=== PATIENT | male | born 1975 | race Two or more races ===

== ENCOUNTER 2019-09-20 13:47 | Inpatient (IN) | payer MEDICAID ==
[~2019-09-20] VITALS: Ht 167.6 cm; Wt 72.3 kg
--- NOTE | 2019-09-20 | NUR ---
NURSE NOTES: Started blood transfusion 1 pack. Pt has no blood transfusion reaction noted after 15 min starting blood transfusion. Vitals are stable. Will continue to monitor.
[~2019-09-20 13:47] MED LIST: Ketorolac 30mg Inj IV ONE
[2019-09-20 13:55] VITALS: BP 127/78
--- NOTE | 2019-09-20 13:55 | NUR ---
ED Nurse Note: Pt brought in by ambulance for ETOH. Pt is responsive and cooperative, rambles, aaox3. ERMD at bedside
--- NOTE | 2019-09-20 14:00 | NUR ---
ED Nurse Note: Pt issued all medications and fluids, tolerating well. Pt is sleeping.
[2019-09-20 14:27] LABS: HEMATOCRIT 23.4 % (42.0-52.0); MEAN CORPUSCULAR VOLUME 77 FL (80-99); PLATELET COUNT 172 K/UL (150-450); RED BLOOD COUNT 3.06 M/UL (4.70-6.10); RED CELL DISTRIBUTION WIDTH 19.4 % (11.6-14.8); WHITE BLOOD COUNT 8.9 K/UL (4.8-10.8)
[2019-09-20] MEDS ORDERED: Ketorolac 30mg Inj ONE (14:29)
[2019-09-20 14:32] LABS: HEMOGLOBIN 6.9 G/DL (14.2-18.0)
[2019-09-20 14:37] LABS: ANION GAP 21 mmol/L (5-15); BLOOD UREA NITROGEN 40 mg/dL (7-18); CALCIUM 9.3 MG/DL (8.5-10.1); CARBON DIOXIDE 19 MMOL/L (21-32); CHLORIDE 100 MMOL/L (98-107); CREATININE 1.4 MG/DL (0.55-1.30); POTASSIUM 4.5 MMOL/L (3.5-5.1); SODIUM 140 MMOL/L (136-145)
[2019-09-20 14:42] LABS: ALANINE AMINOTRANSFERASE 46 U/L (12-78); ALBUMIN 3.8 G/DL (3.4-5.0); ALBUMIN/GLOBULIN RATIO 0.8 (1.0-2.7); ALKALINE PHOSPHATASE 45 U/L (46-116); ASPARTATE AMINO TRANSFERASE 138 U/L (15-37); BILIRUBIN,TOTAL 0.8 MG/DL (0.2-1.0)
--- NOTE | 2019-09-20 15:10 | NUR ---
ED Nurse Note: Received patient from Tx 1 due to low hemoglobin. pt aao x 2 and ambulatory but weak. pt smells like alcohol and flushed face noted. pt calm and follows commands. no cardiac or pulmonary distress noted at this moment.
[2019-09-20 16:05] LABS: INR 1.1 (0.9-1.1)
[2019-09-20 16:11] LABS: % IRON SATURATION 3 % (15-50); IRON 13 ug/dL (50-175); TOTAL IRON BINDING CAPACITY 439 ug/dL (250-450)
--- NOTE | 2019-09-20 16:18 | Emergency Room Report ---
History of Present Illness General Chief Complaint: Alcohol Intoxication Present Illness HPI 44-year-old male with history of high blood pressure and hematuria brought in by paramedics due to alcohol intoxication. Patient is alert and oriented and reports that he did consume a lot of alcohol. Patient is a [place]ian speaker. Denies any chest pain, headache and dizziness, shortness of breath and palpitation at this time. Reports that he has been dealing with gross hematuria for many months now. Does not recall the name of the medication that he is taking for his high blood pressure and cholesterol. Denies abdominal pain , nausea vomiting at this time. Vitals are within normal limits. (Tong Lozano) Allergies: Coded Allergies: No Known Allergies (Unverified , 09/20/19) Patient History Past Medical History: see triage record Past Surgical History: unable to obtain Pertinent Family History: unable to obtain Social History: Reports: alcohol use Immunizations: UTD Reviewed Nursing Documentation: PMH: Agreed; PSxH: Agreed (Tong Lozano) Review of Systems All Other Systems: negative except mentioned in HPI (Tong Lozano) Physical Exam Vital Signs Date Time Temp Pulse Resp B/P (MAP) Pulse Ox O2 Delivery O2 Flow Rate FiO2 09/20/19 13:18 99.9 100 124/73 (90) 18 Room Air 09/20/19 13:55 22 Sp02 EP Interpretation: reviewed, normal General Appearance: alert, mild distress, other - alcohol intoxication Head: normocephalic, atraumatic Eyes: bilateral eye normal inspection, bilateral eye PERRL ENT: hearing grossly normal, normal pharynx, no angioedema, normal voice Neck: full range of motion, supple/symm/no masses Respiratory: chest non-tender, lungs clear, normal breath sounds, no rhonchi, no respiratory distress, no retraction, no wheezing, speaking full sentences Cardiovascular #1: regular rate, rhythm, no edema, no murmur, normal capillary refill Cardiovascular #2: 2+ radial (R), 2+ radial (L), 2+ dorsalis pedis (R), 2+ dorsalis pedis (L) Gastrointestinal: normal bowel sounds, non tender, soft, non-distended, no guarding, no rebound Rectal: deferred Genitourinary: no CVA tenderness Musculoskeletal: back normal, no calf tenderness Neurologic: alert, motor strength/tone normal, oriented, sensory intact, responsive, speech normal Psychiatric: memory normal, mood/affect normal, no suicidal/homicidal ideation Skin: no rash Lymphatic: no adenopathy (Tong Lozano) Medical Decision Making PA Attestation All diagnoses and treatment plans were reviewed and discussed with my supervising physician Dr. Blood (Tong Lozano) PA Attestation I participated in the care of this patient along with ANDREA Quintero Briefly, this is a 44-year-old [place]ian-speaking male who was brought in by EMS for alcohol intoxication. Labs found significant microcytic anemia and the patient was endorsing gross hematuria over the past few weeks. He is being transfused 1 unit PRBC in the emergency department and will be admitted for anemia and hematuria work-up. (Chava Means MD) Diagnostic Impression: Primary Impression: Microcytic anemia Additional Impressions: Hematuria Acute alcoholic intoxication ER Course 44-year-old male with history of high blood pressure and hematuria brought in by paramedics due to alcohol intoxication. Patient is alert and oriented and reports that he did consume a lot of alcohol. Patient is a Belarusian speaker. Denies any chest pain, headache and dizziness, shortness of breath and palpitation at this time. Reports that he has been dealing with gross hematuria for many months now. Does not recall the name of the medication that he is taking for his high blood pressure and cholesterol. Denies abdominal pain , nausea vomiting at this time. Vitals are within normal limits. Ddx considered but are not limited to: Alcohol intoxication with altered level of consciousness, alcohol intoxication causing pancreatitis, alcohol abuse, multi drug use and alcohol intoxication, liver cirrhosis, anemia Vital signs: are WNL, pt. is afebrile H&PE are most consistent with: Microcytic anemia, chronic hematuria, alcohol intoxication ORDERS: CBC, CMP, PT and PTT, type and screen, UA, tox screen, blood serum level of alcohol, lipase, EKG, chest x-ray ER intervention: 2 L of NS bolus, Zofran, Toradol, Pepcid, packed red blood cells Patient was admitted with diagnosis of microcytic anemia, hematuria to under supervision of DrDickson: Elpidio pt stable at time of admission (Tong Lozano) EKG Diagnostic Results Rate: normal Rhythm: NSR ST Segments: no acute changes Other Impression No acute ST changes (Tong Lozano) Chest X-Ray Diagnostic Results Chest X-Ray Diagnostic Results : Chest X-Ray Ordered: Yes # of Views/Limited/Complete: 1 View Indication: Other EP Interpretation: Yes PA Xray: Interpretation reviewed, by supervising MD, and agrees with findings. Interpretation: no consolidation, no effusion, no pneumothorax Impression: No acute disease Electronically Signed by: Tong Maldonado PA-C (Tong Lozano) Chest X-Ray Diagnostic Results : Electronically Signed by: Jarad Swartz documentation of Xray reviewed by me and is accurate, Magdiel Blood MD (Magdiel Blood MD) Last Vital Signs Date Time Temp Pulse Resp B/P (MAP) Pulse Ox O2 Delivery O2 Flow Rate FiO2 09/20/19 15:05 99.9 09/20/19 13:55 100 22 Room Air 09/20/19 13:55 127/78 18 (Tong Lozano) Disposition: ADMITTED INPATIENT Condition: Stable Scripts No Active Prescriptions or Reported Meds Referrals: NOT CHOSEN IPA/,REFERRING (PCP) Tong Lozano Sep 20, 2019 16:18 Chava Means MD Sep 21, 2019 20:40 Magdiel Blood MD Sep 21, 2019 23:55
[2019-09-20 16:30] LABS: APPEARANCE,URINE CLEAR; BILIRUBIN, URINE NEGATIVE (NEGATIVE); COLOR,URINE PALE YELLOW; GLUCOSE, URINE (UA) NEGATIVE (NEGATIVE); KETONES,URINE 4+ (NEGATIVE); LEUKOCYTE ESTERASE ,URINE 3+ (NEGATIVE); NITRITE,URINE NEGATIVE (NEGATIVE); PH,URINE 5 (4.5-8.0); PROTEIN,URINE 2+ (NEGATIVE); UROBILINOGEN,URINE NORMAL MG/DL (0.0-1.0)
[2019-09-20] MEDS ORDERED: cefTRIAXone 1 GM in NS 55 ML IVPB ONE (17:00)
[2019-09-20] MEDS ORDERED: Metoclopramide 10mg/2ml Inj IVP PRN (18:00)
[2019-09-20] MEDS ORDERED: Mylanta II UD 30ml ORAL PRN (18:00)
[2019-09-20] MEDS ORDERED: Acetaminophen 650 MG SUPP RECTAL PRN ×2 (18:00)
[2019-09-20] MEDS ORDERED: Albuterol/Ipratropium 3ml neb HHN PRN ×2 (18:00)
[2019-09-20] MEDS ORDERED: Milk of Magnesia 30ml Ud ORAL PRN (18:00)
[2019-09-20] MEDS ORDERED: Thiamine 100mg tab ORAL SCH (18:15)
--- NOTE | 2019-09-20 19:06 | NUR ---
HAND-OFF: Report given to DAVON Young. waiting for the blood from blood bank. no other orders to carry at this moment.
--- NOTE | 2019-09-20 19:10 | NUR ---
ED Nurse Note: Pt received from Clay Avila RN. Pt is resting in bed, no acute distress noted. 20g IV in L ac is patent and intact, IV fluids infusing at this time. Will continue to monitor.
[2019-09-20 19:15] VITALS: BP 140/75
--- NOTE | 2019-09-20 19:40 | NUR ---
ED Nurse Note: Report given to DAVON webb.
--- NOTE | 2019-09-20 19:50 | NUR ---
ED Nurse Note: Pt taken to med surg via gurney by tech. Pt is stable at this time. No cardiac or respiratory distress noted. Pt belongings taken with pt.
--- NOTE | 2019-09-20 21:00 | NUR ---
NURSE NOTES: Received report from DAVON Young ED. Pt arrived to the unit @ 2009 via gurney. AAO x 3, on room air. [place] Islander speaking, very confused. Pt is ambulatory with weak gait. IV site intact and patent. Hgb 6.9 noted. Blood transfusion will be given as ordered. Skin is intact. Belongings list reviewed. No home medication taken. Bed locked, lowest position, alarm on, side rails up, call light within reach. Will continue to monitor.
--- NOTE | 2019-09-20 21:30 | NUR ---
NURSE NOTES: US renal done at the bedside. Pt was cooperative.
[2019-09-20] MEDS: Docusate 100mg cap ORAL SCH (21:51)
[2019-09-20] MEDS ORDERED: Labetalol 5mg/ml 20ml vial IV ONE (22:30)
--- NOTE | 2019-09-20 22:39 | Diagnostic Imaging Report ---
Indication: Hematuria, abnormal renal function tests Technique: Grayscale and duplex images of the kidneys, retroperitoneum, and bladder were obtained. Comparison: none Findings: Right kidney measures 10.7 cm in length. Left kidney measures 11.4 cm in length. Both kidneys demonstrate normal echogenicity. No hydronephrosis. No focal abnormality. Normal inferior vena cava. Bladder is normal. Impression: negative This agrees with the preliminary interpretation provided overnight by [facility]eradiology service..
--- NOTE | 2019-09-20 23:00 | NUR ---
NURSE NOTES: Received order for SCDs and Hydralazine 25mg PO Q8hr prn SBP > [address] Bush.
[2019-09-20] MEDS ORDERED: HydrALAZINE 25mg tab ORAL PRN (23:15)
[2019-09-20] MEDS: LORazepam 1mg tab ORAL PRN (23:25)
[2019-09-21] VITALS: BP 160/85
--- NOTE | 2019-09-21 00:58 | NUR ---
NURSE NOTES: Pt restless, trying to get out of bed, and pull IV during blood transfusion. Received bilateral soft wrist restraints order from Dr. Bush.
[2019-09-21 04:00] VITALS: BP 138/75
--- NOTE | 2019-09-21 05:00 | NUR ---
NURSE NOTES: Pt voided yellow urine. No hematuria noted.
[2019-09-21] MEDS: LORazepam 1mg tab ORAL PRN ×2 (05:53→16:01)
[2019-09-21 07:04] LABS: HEMATOCRIT 27.6 % (42.0-52.0); HEMOGLOBIN 8.4 G/DL (14.2-18.0); MEAN CORPUSCULAR VOLUME 79 FL (80-99); PLATELET COUNT 176 K/UL (150-450); RED BLOOD COUNT 3.51 M/UL (4.70-6.10); RED CELL DISTRIBUTION WIDTH 20.3 % (11.6-14.8); WHITE BLOOD COUNT 6.1 K/UL (4.8-10.8)
[2019-09-21 07:13] LABS: ANION GAP 16 mmol/L (5-15); BLOOD UREA NITROGEN 17 mg/dL (7-18); CALCIUM 8.6 MG/DL (8.5-10.1); CARBON DIOXIDE 18 MMOL/L (21-32); CHLORIDE 98 MMOL/L (98-107); CREATININE 0.9 MG/DL (0.55-1.30); POTASSIUM 3.3 MMOL/L (3.5-5.1); SODIUM 132 MMOL/L (136-145)
--- NOTE | 2019-09-21 07:41 | NUR ---
HAND-OFF: Report given to DAVON Walsh.
--- NOTE | 2019-09-21 07:51 | History and Physical ---
History of Present Illness General Date patient seen: Sep 21, 2019 Reason for Hospitalization: Alcohol Intoxication Present Illness HPI 44-year-old male, poor historian with history of high blood pressure and hematuria brought in by paramedics due to alcohol intoxication. Patient is alert and oriented and reports that he did consume a lot of alcohol. Denies any chest pain, headache and dizziness, shortness of breath and palpitation at this time. Reports that he has been dealing with gross hematuria for many months now. Does not recall the name of the medication that he is taking for his high blood pressure and cholesterol. Denies abdominal pain, nausea vomiting at this time. Vitals are within normal limits. his hemoglbin was low, he was transfused 1 unit prbc pmh, psh: As above Social history: etoh abuse family history: patient doesn't know Allergies: Coded Allergies: No Known Allergies (Unverified , 09/20/19) Medication History No Active Prescriptions or Reported Meds Patient History Healthcare decision maker Resuscitation status Advanced Directive on File Review of Systems Respiratory: Denies: no symptoms, see HPI, cough, orthopnea, shortness of breath, stridor, wheezing, FELICIANO, sputum, other Cardiovascular: Denies: no symptoms, see HPI, chest pain, edema, palpitations, syncope, PND, other Genitourinary: Reports: hematuria Neurological: Denies: no symptoms, see HPI, headache, numbness, paresthesia, seizure, tingling, tremors, focal weakness, syncope, dizziness, other Physical Exam General Appearance: confused Lines, tubes and drains: peripheral HEENT: normocephalic, atraumatic, anicteric, mucous membranes moist, PERRL, EOMI Neck: supple Respiratory/Chest: lungs clear, normal breath sounds, no accessory muscle use Cardiovascular/Chest: normal peripheral pulses, normal rate, regular rhythm, no gallop/murmur, no JVD Abdomen: non tender, soft, no mass, abnormal bowel sounds Extremities: normal range of motion, non-tender Skin Exam: normal pigmentation, warm/dry Neurologic: disoriented Musculoskeletal: normal muscle bulk Last 24 Hour Vital Signs Date Time Temp Pulse Resp B/P (MAP) Pulse Ox O2 Delivery O2 Flow Rate FiO2 09/21/19 04:00 97.8 95 18 138/75 (96) 96 09/21/19 01:37 Room Air 09/21/19 00:00 97.8 98 20 160/85 (110) 95 09/20/19 19:50 99.5 100 19 122/82 99 Room Air 09/20/19 19:15 99.9 100 22 140/75 100 Room Air 09/20/19 15:05 99.9 09/20/19 13:55 100 22 Room Air 09/20/19 13:55 99.9 100 22 127/78 18 Room Air 09/20/19 13:18 99.9 100 124/73 (90) 18 Room Air Intake and Output 09/20/19 09/21/19 19:00 07:00 Intake Total 2055 ml 0 ml Balance 2055 ml 0 ml Intake Oral 0 ml 0 ml IV Total 2055 ml # Voids 4 Laboratory Tests Test 09/20/19 14:20 09/20/19 14:30 09/20/19 16:15 09/21/19 05:20 White Blood Count 8.9 K/UL (4.8-10.8) 6.1 K/UL (4.8-10.8) Red Blood Count 3.06 M/UL (4.70-6.10) L 3.51 M/UL (4.70-6.10) L Hemoglobin 6.9 G/DL (14.2-18.0) *L 8.4 G/DL (14.2-18.0) L Hematocrit 23.4 % (42.0-52.0) L 27.6 % (42.0-52.0) L Mean Corpuscular Volume 77 FL (80-99) L 79 FL (80-99) L Mean Corpuscular Hemoglobin 22.6 PG (27.0-31.0) L 23.9 PG (27.0-31.0) L Mean Corpuscular Hemoglobin Concent 29.5 G/DL (32.0-36.0) L 30.3 G/DL (32.0-36.0) L Red Cell Distribution Width 19.4 % (11.6-14.8) H 20.3 % (11.6-14.8) H Platelet Count 172 K/UL (150-450) 176 K/UL (150-450) Mean Platelet Volume 6.4 FL (6.5-10.1) L 6.4 FL (6.5-10.1) L Neutrophils (%) (Auto) % (45.0-75.0) % (45.0-75.0) Lymphocytes (%) (Auto) % (20.0-45.0) % (20.0-45.0) Monocytes (%) (Auto) % (1.0-10.0) % (1.0-10.0) Eosinophils (%) (Auto) % (0.0-3.0) % (0.0-3.0) Basophils (%) (Auto) % (0.0-2.0) % (0.0-2.0) Differential Total Cells Counted 100 Neutrophils % (Manual) 79 % (45-75) H Pending Lymphocytes % (Manual) 11 % (20-45) L Pending Monocytes % (Manual) 10 % (1-10) Eosinophils % (Manual) 0 % (0-3) Basophils % (Manual) 0 % (0-2) Band Neutrophils 0 % (0-8) Platelet Estimate Adequate Pending Platelet Morphology Normal Pending Polychromasia 1+ Hypochromasia 2+ Anisocytosis 2+ Microcytosis 1+ Sodium Level 140 MMOL/L (136-145) 132 MMOL/L (136-145) L Potassium Level 4.5 MMOL/L (3.5-5.1) 3.3 MMOL/L (3.5-5.1) L Chloride Level 100 MMOL/L (98-107) 98 MMOL/L (98-107) Carbon Dioxide Level 19 MMOL/L (21-32) L 18 MMOL/L (21-32) L Anion Gap 21 mmol/L (5-15) H 16 mmol/L (5-15) H Blood Urea Nitrogen 40 mg/dL (7-18) H 17 mg/dL (7-18) Creatinine 1.4 MG/DL (0.55-1.30) H 0.9 MG/DL (0.55-1.30) Estimat Glomerular Filtration Rate 55.3 mL/min (>60) > 60 mL/min (>60) Glucose Level 68 MG/DL (74-106) L 68 MG/DL (74-106) L Calcium Level 9.3 MG/DL (8.5-10.1) 8.6 MG/DL (8.5-10.1) Total Bilirubin 0.8 MG/DL (0.2-1.0) Aspartate Amino Transf (AST/SGOT) 138 U/L (15-37) H Alanine Aminotransferase (ALT/SGPT) 46 U/L (12-78) Alkaline Phosphatase 45 U/L (46-116) L Total Protein 8.7 G/DL (6.4-8.2) H Albumin 3.8 G/DL (3.4-5.0) Globulin 4.9 g/dL Albumin/Globulin Ratio 0.8 (1.0-2.7) L Lipase 213 U/L (73-393) Serum Alcohol < 2 mg/dL Prothrombin Time 11.9 SEC (9.30-11.50) H Prothromb Time International Ratio 1.1 (0.9-1.1) Activated Partial Thromboplast Time 23 SEC (23-33) Iron Level 13 ug/dL (50-175) L Total Iron Binding Capacity 439 ug/dL (250-450) Percent Iron Saturation 3 % (15-50) L Unsaturated Iron Binding 426 ug/dL (112-346) H Troponin I 0.010 ng/mL (0.000-0.056) Urine Color Pale yellow Urine Appearance Clear Urine pH 5 (4.5-8.0) Urine Specific [place] 1.020 (1.005-1.035) Urine Protein 2+ (NEGATIVE) H Urine Glucose (UA) Negative (NEGATIVE) Urine Ketones 4+ (NEGATIVE) H Urine Blood 1+ (NEGATIVE) H Urine Nitrite Negative (NEGATIVE) Urine Bilirubin Negative (NEGATIVE) Urine Urobilinogen Normal MG/DL (0.0-1.0) Urine Leukocyte Esterase 3+ (NEGATIVE) H Urine RBC 2-4 /HPF (0 - 0) H Urine WBC 2-4 /HPF (0 - 0) Urine Squamous Epithelial Cells Few /LPF (NONE/OCC) Urine Bacteria Few /HPF (NONE) Urine Opiates Screen Negative (NEGATIVE) Urine Barbiturates Screen Negative (NEGATIVE) Phencyclidine (PCP) Screen Negative (NEGATIVE) Urine Amphetamines Screen Negative (NEGATIVE) Urine Benzodiazepines Screen Positive (NEGATIVE) H Urine Cocaine Screen Negative (NEGATIVE) Urine Marijuana (THC) Screen Negative (NEGATIVE) Magnesium Level 1.7 MG/DL (1.8-2.4) L Thyroid Stimulating Hormone (TSH) 2.683 uiU/mL (0.358-3.740) Height (Feet): 5 Height (Inches): 7.00 Weight (Pounds): 160 Medications Current Medications Medications (Trade) Dose Ordered Sig/Jessie Route PRN Reason Start Time Stop Time Status Last Admin Dose Admin Acetaminophen (Tylenol) 650 mg Q4H PRN ORAL Mild Pain (Pain Scale 1-3) 09/20/19 18:00 10/20/19 17:59 Acetaminophen (Tylenol) 650 mg Q4H PRN ORAL fever (T>100.5) 09/20/19 18:00 10/20/19 17:59 Acetaminophen (Tylenol) 650 mg Q4H PRN RECTAL Mild Pain (Pain Scale 1-3) 09/20/19 18:00 10/20/19 17:59 Acetaminophen (Tylenol) 650 mg Q4H PRN RECTAL fever (T>100.5) 09/20/19 18:00 10/20/19 17:59 Al Hydroxide/Mg Hydroxide (Mylanta II) 30 ml Q6H PRN ORAL dyspepsia 09/20/19 18:00 10/20/19 17:59 Albuterol/ Ipratropium (Albuterol/ Ipratropium) 3 ml Q4H PRN HHN Shortness of Breath/wheezing 09/20/19 18:00 09/25/19 17:59 Bisacodyl (Dulcolax) 10 mg DAILYPRN PRN RECTAL Constipation 09/20/19 18:00 10/20/19 17:59 Dextrose (Dextrose 50%) 25 ml Q30M PRN IV Hypoglycemia 09/20/19 18:00 10/20/19 17:59 Dextrose (Dextrose 50%) 50 ml Q30M PRN IV Hypoglycemia 09/20/19 18:00 10/20/19 17:59 Diphenhydramine HCl (Benadryl) 25 mg Q6H PRN ORAL Itching/Pruritis 09/20/19 18:00 10/20/19 17:59 Docusate Sodium (Colace) 100 mg EVERY 12 HOURS ORAL 09/20/19 21:00 10/20/19 20:59 09/20/19 21:51 Famotidine (Pepcid) 40 mg DAILY ORAL 09/21/19 09:00 10/21/19 08:59 Folic Acid (Folate) 1 mg DAILY ORAL 09/21/19 09:00 10/21/19 08:59 Hydralazine HCl (Apresoline) 25 mg EVERY 8 HOURS PRN ORAL SBP >170 09/20/19 23:15 10/20/19 23:14 Iron Sucrose 100 mg/Sodium Chloride 55 ml @ 100 mls/hr QHS IV 09/21/19 21:00 09/25/19 23:59 Lorazepam (Ativan) 1 mg Q4H PRN ORAL For Anxiety 09/20/19 18:00 09/27/19 17:59 09/21/19 05:53 Magnesium Hydroxide (Mom) 30 ml HSPRN PRN ORAL Constipation 09/20/19 18:00 10/20/19 17:59 Metoclopramide HCl (Reglan) 10 mg Q6H PRN IVP Nausea & Vomiting 09/20/19 18:00 10/20/19 17:59 Multivitamins (Multivitamins) 1 tab DAILY ORAL 09/21/19 09:00 10/21/19 08:59 Ondansetron HCl (Zofran) 4 mg Q6H PRN IVP Nausea & Vomiting 09/20/19 18:00 10/20/19 17:59 Prochlorperazine (Compazine) 10 mg Q6H PRN IVP Nausea & Vomiting 09/20/19 18:00 10/20/19 17:59 Sodium Chloride 1,000 ml @ 100 mls/hr Q10H IVLG 09/20/19 18:55 09/21/19 21:00 09/21/19 04:27 Temazepam (Restoril) 15 mg HSPRN PRN ORAL Insomnia 09/20/19 18:00 09/27/19 17:59 Assessment/Plan Problem List: (1) Acute alcoholic intoxication ICD Codes: F10.929 - Alcohol use, unspecified with intoxication, unspecified SNOMED: 62181399, 3264717 (2) Microcytic anemia ICD Codes: D50.9 - Iron deficiency anemia, unspecified SNOMED: 501563237 (3) Hematuria ICD Codes: R31.9 - Hematuria, unspecified SNOMED: 34919256 Status: stable Assessment/Plan: Admit to med surg transfuse prn keep hgb> 7 renal US Abdominal US etoh withdrawal protocol Wilber Holt M.D. Sep 21, 2019 07:51
[2019-09-21 08:00] VITALS: BP 130/76
--- NOTE | 2019-09-21 08:45 | NUR ---
PT NOTE Received MD order for PT evaluation. Attempted to see patient for PT evaluation, patient currently confused, unable to participate with PT evaluation. Jillian MAYS notified, will re-attempt later as schedule permits.
[2019-09-21] MEDS: Docusate 100mg cap ORAL SCH ×2 (10:14→20:47)
--- NOTE | 2019-09-21 11:46 | NUR ---
CASE MANAGEMENT:REVIEW 44 YR OLD MALE BIBA FROM STREET CC: ALCOHOL INTOXICATION SI: ANEMIA. HEMATURIA. ACUTE ALCOHOLIC INTOXICATION 99.9 100 22 124/73 100% ON RA H/H-6.9/23.4 IS: 1L NS BOLUS X3 IV TORADOL X1 IV ZOFRAN X1 IV PEPCID X1 CHEST XRAY PRBC'S : TO MED/SURG
[2019-09-21 12:00] VITALS: BP 146/83
--- NOTE | 2019-09-21 15:02 | NUR ---
NURSE NOTES: Pt no longer talking when being spoken to. Did attempt to answer some questions this am remained confused senior copywriter asked if he knew where he was at this time, he replied yes I know how to add , I did not do well in school , but I remember how to add how about you" Skin remain clear, no swelling, able move digits. Pt required to be fed.
--- NOTE | 2019-09-21 15:54 | Diagnostic Imaging Report ---
Indication: Shortness of breath Technique: One view of the chest Comparison: none Findings: Lungs and pleural spaces are clear. Heart size is normal. Impression: No acute process
[2019-09-21 20:00] VITALS: BP_SYST 154; BP_SYST 160; BP_DIAS 100; BP_DIAS 90
--- NOTE | 2019-09-21 20:13 | NUR ---
NURSE NOTES: Attempted to release pt became combative yelling that investment underwriter has stollen his rings. Ativan given. Pt repositioned, hydrated and fed. Skin to bilateral wrist intact and clear. Dr Holt here seen pt earlier in shift, NNO . Call placed, to covering Dr to abnormal labs. Endorsed to oncoming nurse.
--- NOTE | 2019-09-21 20:15 | NUR ---
NURSE NOTES: AAO x 2, on room air. [place]ian speaking, very confused. pt is shaky. IV site no longer on, found at bedside. removed and will reinsert. Skin is intact, yet swelling to right hand. Bilateral soft wrist restraints on and loosened, will try to see how patient can do without them. Bed locked, lowest position, transferred to room 311-2 as pt was in a non alarming bed. side rails up x3, call light within reach. Will continue to monitor.
[2019-09-22] VITALS: BP 160/100
[2019-09-22 04:06] VITALS: BP 139/85
[2019-09-22 06:12] LABS: BASOPHILS % (AUTO) 1.4 % (0.0-2.0); EOSINOPHILS % (AUTO) 2.6 % (0.0-3.0); HEMATOCRIT 27.7 % (42.0-52.0); HEMOGLOBIN 8.6 G/DL (14.2-18.0); LYMPHOCYTES % (AUTO) 22.9 % (20.0-45.0); MEAN CORPUSCULAR VOLUME 78 FL (80-99); MONOCYTES % (AUTO) 15.3 % (1.0-10.0); NEUTROPHILS % (AUTO) 57.8 % (45.0-75.0); PLATELET COUNT 142 K/UL (150-450); RED BLOOD COUNT 3.53 M/UL (4.70-6.10); RED CELL DISTRIBUTION WIDTH 20.2 % (11.6-14.8); WHITE BLOOD COUNT 5.7 K/UL (4.8-10.8)
[2019-09-22 06:53] LABS: ALANINE AMINOTRANSFERASE 40 U/L (12-78); ALBUMIN 3.5 G/DL (3.4-5.0); ALBUMIN/GLOBULIN RATIO 0.7 (1.0-2.7); ALKALINE PHOSPHATASE 48 U/L (46-116); ANION GAP 10 mmol/L (5-15); ASPARTATE AMINO TRANSFERASE 95 U/L (15-37); BILIRUBIN,TOTAL 0.6 MG/DL (0.2-1.0); BLOOD UREA NITROGEN 12 mg/dL (7-18); CALCIUM 9.2 MG/DL (8.5-10.1); CARBON DIOXIDE 25 MMOL/L (21-32); CHLORIDE 100 MMOL/L (98-107); POTASSIUM 4.6 MMOL/L (3.5-5.1); SODIUM 135 MMOL/L (136-145)
--- NOTE | 2019-09-22 07:49 | NUR ---
HAND-OFF: Report given to Rudy De Los Santos RN's.
--- NOTE | 2019-09-22 07:50 | NUR ---
NURSE NOTES: Patient awake and alert x 2. Patient Kinyarwanda speaking. Patient is agitated and will not sit still in the bed. Patient continues to try and get out of bed. Both arms restrained. Restraints are not too tight, good circulation, patient able to move extremities. Reposition patient in bed. Will follow up with MD for new orders to keep patient safe. Bed locked, ararmed, and in lowest position. Will continue to follow plan of care.
[2019-09-22 08:00] VITALS: BP 156/90
[2019-09-22] MEDS ORDERED: chlordiazePOXIDE 25mg Cap ORAL PRN (08:30)
[2019-09-22] MEDS: Docusate 100mg cap ORAL SCH ×3 (09:00→21:00)
--- NOTE | 2019-09-22 09:00 | NUR ---
PT EVALUATION NOTE Patient seen for initial evaluation. Patient presents with generalized weakness and impaired balance and coordination which affects patient's ability to perform mobility tasks. Patient requires min/mod assist for bed mobility, transfers and ambulation. Patient able to ambulate 40 ft with FWW, requires assist to manage FWW and for balance. Patient with decreased safety awareness and is fall risk. Patient will benefit from skilled inpatient PT intervention to address strength, balance and safety for improved level of functional mobility. Discharge disposition to be determined and DME needs to be determined based on patient's progress. Addendum: 09/22/19 at 1304 by ZEYNEP CASTANEDA PT Amended: Links added.
--- NOTE | 2019-09-22 09:41 | General Progress Note ---
Assessment/Plan Problem List: (1) Acute alcoholic intoxication ICD Codes: F10.929 - Alcohol use, unspecified with intoxication, unspecified SNOMED: 48684274, 3037096 (2) Microcytic anemia ICD Codes: D50.9 - Iron deficiency anemia, unspecified SNOMED: 242874768 (3) Hematuria ICD Codes: R31.9 - Hematuria, unspecified SNOMED: 61048130 Status: stable Assessment/Plan: Admit to med surg transfuse prn keep hgb> 7 renal US Abdominal US etoh withdrawal protocol Subjective Date patient seen: Sep 22, 2019 Allergies: Coded Allergies: No Known Allergies (Unverified , 09/20/19) Objective Last 24 Hour Vital Signs Date Time Temp Pulse Resp B/P (MAP) Pulse Ox O2 Delivery O2 Flow Rate FiO2 09/22/19 04:06 98.3 88 20 139/85 (103) 98 09/22/19 00:00 98.5 84 20 160/100 (120) 100 09/21/19 21:00 Room Air 09/21/19 20:00 99.0 103 20 154/90 (111) 96 09/21/19 12:00 98.1 77 16 146/83 (104) Intake and Output 09/21/19 09/22/19 19:00 07:00 Intake Total 480 ml 400 ml Balance 480 ml 400 ml Intake Oral 480 ml 400 ml # Voids 3 4 Laboratory Tests 09/22/19 05:30: White Blood Count 5.7, Red Blood Count 3.53L, Hemoglobin 8.6L, Hematocrit 27.7L , Mean Corpuscular Volume 78L, Mean Corpuscular Hemoglobin 24.2L, Mean Corpuscular Hemoglobin Concent 30.9L, Red Cell Distribution Width 20.2H, Platelet Count 142L, Mean Platelet Volume 6.2L, Neutrophils (%) (Auto) 57.8, Lymphocytes (%) (Auto) 22.9, Monocytes (%) (Auto) 15.3H, Eosinophils (%) (Auto) 2.6, Basophils (%) (Auto) 1.4, Sodium Level 135L, Potassium Level 4.6, Chloride Level 100, Carbon Dioxide Level 25, Anion Gap 10, Blood Urea Nitrogen 12, Creatinine 1.0, Estimat Glomerular Filtration Rate > 60, Glucose Level 98, Calcium Level 9.2, Total Bilirubin 0.6, Aspartate Amino Transf (AST/SGOT) 95H, Alanine Aminotransferase (ALT/SGPT) 40, Alkaline Phosphatase 48, Total Protein 8.6H, Albumin 3.5, Globulin 5.1, Albumin/Globulin Ratio 0.7L Height (Feet): 5 Height (Inches): 7.00 Weight (Pounds): 160 Wilber Holt M.D. Sep 22, 2019 09:41
--- NOTE | 2019-09-22 10:05 | NUR ---
CASE MANAGEMENT:REVIEW 09/22/19 SI: ACUTE ALCOHOLIC INTOXICATION ANEMIA. HEMATURIA....S/P 1 UNIT PRBC'S 98.3 88 20 139/85 98% ON RA H/H-8.6/27.7 IS: LIBRIUM PO Q8HRS PRN IV VENOFER QHS PEPCID PO QD FOLATE PO QD MVI PO QD ATIVAN PO Q4HRS PRN : MED/SURG STATUS 3 EAST PLAN: ETOH WITHDRAWAL PROTOCOL
--- NOTE | 2019-09-22 10:14 | NUR ---
DISCHARGE PLANNING PATIENT IS NOT COHERENT ENOUGH TO HOLD A CONVERSATION CALLED SISTER'S NUMBER ON THE FACE SHEET. NO ANSWER...LEFT VOICEMAIL MESSAGE REQUESTING A RETURN CALL
[2019-09-22] MEDS: LORazepam 1mg tab ORAL PRN (10:15)
--- NOTE | 2019-09-22 10:19 | General Progress Note ---
Assessment/Plan Problem List: (1) Acute alcoholic intoxication ICD Codes: F10.929 - Alcohol use, unspecified with intoxication, unspecified SNOMED: 48251274, 8755238 (2) Microcytic anemia ICD Codes: D50.9 - Iron deficiency anemia, unspecified SNOMED: 775828213 (3) Hematuria ICD Codes: R31.9 - Hematuria, unspecified SNOMED: 89618400 Status: stable Assessment/Plan: 44 year old male with etoh abuse, and hematuria. Hemoglobin stable. no more episodes of hematuria Admit to med surg transfuse prn keep hgb> 7 renal US Abdominal US etoh withdrawal protocol, add Librium CM consult for DC planning Anemia work up Subjective Date patient seen: Sep 22, 2019 ROS Limited/Unobtainable: Yes Allergies: Coded Allergies: No Known Allergies (Unverified , 09/20/19) Subjective following up on etoh withdrawal and hematuria. patient confused, tremors. alert and oriented x2. seen with Wolof speaking RN. No episodes of hematuria since admission Objective Last 24 Hour Vital Signs Date Time Temp Pulse Resp B/P (MAP) Pulse Ox O2 Delivery O2 Flow Rate FiO2 09/22/19 04:06 98.3 88 20 139/85 (103) 98 09/22/19 00:00 98.5 84 20 160/100 (120) 100 09/21/19 21:00 Room Air 09/21/19 20:00 99.0 103 20 154/90 (111) 96 09/21/19 12:00 98.1 77 16 146/83 (104) Intake and Output 09/21/19 09/22/19 19:00 07:00 Intake Total 480 ml 400 ml Balance 480 ml 400 ml Intake Oral 480 ml 400 ml # Voids 3 4 Laboratory Tests 09/22/19 05:30: White Blood Count 5.7, Red Blood Count 3.53L, Hemoglobin 8.6L, Hematocrit 27.7L , Mean Corpuscular Volume 78L, Mean Corpuscular Hemoglobin 24.2L, Mean Corpuscular Hemoglobin Concent 30.9L, Red Cell Distribution Width 20.2H, Platelet Count 142L, Mean Platelet Volume 6.2L, Neutrophils (%) (Auto) 57.8, Lymphocytes (%) (Auto) 22.9, Monocytes (%) (Auto) 15.3H, Eosinophils (%) (Auto) 2.6, Basophils (%) (Auto) 1.4, Sodium Level 135L, Potassium Level 4.6, Chloride Level 100, Carbon Dioxide Level 25, Anion Gap 10, Blood Urea Nitrogen 12, Creatinine 1.0, Estimat Glomerular Filtration Rate > 60, Glucose Level 98, Calcium Level 9.2, Total Bilirubin 0.6, Aspartate Amino Transf (AST/SGOT) 95H, Alanine Aminotransferase (ALT/SGPT) 40, Alkaline Phosphatase 48, Total Protein 8.6H, Albumin 3.5, Globulin 5.1, Albumin/Globulin Ratio 0.7L Height (Feet): 5 Height (Inches): 7.00 Weight (Pounds): 160 General Appearance: confused, moderate distress Neck: supple Cardiovascular: normal rate, regular rhythm, no gallop/murmur, no JVD Respiratory/Chest: lungs clear, no accessory muscle use Abdomen: normal bowel sounds, non tender, soft, no organomegaly, no mass Extremities: no calf tenderness, normal capillary refill Neurologic: disoriented, other - has tremors, otherweise grossly normal, moves all extremities Skin: warm/dry, no diaphoresis Wilber Holt M.D. Sep 22, 2019 10:19
[2019-09-22 12:00] VITALS: BP 134/75
[2019-09-22] MEDS ORDERED: LORazepam Inj 2mg/ml 1ml IM PRN (13:30)
--- NOTE | 2019-09-22 15:21 | NUR ---
HAND-OFF: Report given to Spring Williamson RN.
--- NOTE | 2019-09-22 15:23 | NUR ---
NURSE NOTES: Received patient from 3E. Patient is awake, confused and restlessness and tries to get out of the bed without assistance @ this time. Per 3E nurse matthias IM was given to the patient prior to transfer. Djiboutian speaking staff talked to him in Djiboutian to calm him down and assess his needs but unable to communicate properly due to patient is confused and agitated. All belongings are accounted for. No IV. Bed alarm is on and side rails up and transferred patient to near the station. Paged Dr. spear's on for orders. Awaiting for return call.
[2019-09-22 16:00] VITALS: BP 147/92
--- NOTE | 2019-09-22 19:20 | NUR ---
HAND-OFF: Report given to Nasreen RN, patient is in stable condition.
--- NOTE | 2019-09-22 19:38 | NUR ---
NURSE NOTES: Received report from Spring Williamson RN. Patient squirming in bed, on bilateral soft wrist restraints. A&Ox1, Fijian speaking. On room air, no signs of distress or labored breathing. No IV access. MD aware according to off going nurse. Bed in lowest position with side rails up x3. Will continue to monitor patient and continue with plan of care.
[2019-09-22 20:00] VITALS: BP 148/91
[2019-09-23] VITALS: BP 143/66
[2019-09-23 04:00] VITALS: BP 145/77
--- NOTE | 2019-09-23 07:22 | NUR ---
HAND-OFF: Report given to JUAN ALBERTO Arita.
--- NOTE | 2019-09-23 07:30 | NUR ---
NURSE NOTES: Received patient in bed, calm and comfortable. able to follow commands. A/A/Ox3. on bilateral soft wrist restraints. Bulgarian speaking. On room air, no signs of distress or labored breathing. IV access patent and intact. Bed in lowest position with side rails up x3. HOB elevated. bed is lock mode and alarm engaged. Will continue to monitor.
[2019-09-23 07:50] LABS: HEMATOCRIT 30.6 % (42.0-52.0); HEMOGLOBIN 9.5 G/DL (14.2-18.0); MEAN CORPUSCULAR VOLUME 78 FL (80-99); PLATELET COUNT 241 K/UL (150-450); RED CELL DISTRIBUTION WIDTH 20.7 % (11.6-14.8); WHITE BLOOD COUNT 3.7 K/UL (4.8-10.8)
[2019-09-23 08:00] VITALS: BP 138/89
[2019-09-23] MEDS: Docusate 100mg cap ORAL SCH ×2 (08:50→20:47)
--- NOTE | 2019-09-23 10:35 | General Progress Note ---
Assessment/Plan Problem List: (1) Acute alcoholic intoxication ICD Codes: F10.929 - Alcohol use, unspecified with intoxication, unspecified SNOMED: 68618650, 5893360 (2) Microcytic anemia ICD Codes: D50.9 - Iron deficiency anemia, unspecified SNOMED: 919198346 (3) Hematuria ICD Codes: R31.9 - Hematuria, unspecified SNOMED: 91575055 Status: stable Assessment/Plan: 44 year old male with etoh abuse, and hematuria. Hemoglobin stable. no more episodes of hematuria Admit to med surg transfuse prn keep hgb> 7 renal US Abdominal US etoh withdrawal protocol, add Librium CM consult for DC planning Anemia work up reviewed. Subjective Date patient seen: Sep 23, 2019 ROS Limited/Unobtainable: No Constitutional: Reports: other - tremors HEENT: Denies: no symptoms, eye pain, blurred vision, tearing, double vision, ear pain, ear discharge, nose pain, nose congestion, throat pain, throat swelling, mouth pain, mouth swelling, other Cardiovascular: Denies: no symptoms, chest pain, edema, irregular heart rate, lightheadedness, palpitations, syncope, other Respiratory: Denies: no symptoms, cough, orthopnea, shortness of breath, SOB with excertion, SOB at rest, sputum, stridor, wheezing, other Genitourinary: Denies: no symptoms, burning, discharge, frequency, flank pain, hematuria, incontinence, pain, urgency, other Allergies: Coded Allergies: No Known Allergies (Unverified , 09/20/19) Subjective following up on etoh withdrawal and hematuria. patient's confusion is better, he is alert and oriented to self and place, still has tremors. alert and oriented x2. seen with Persian speaking RN. No episodes of hematuria since admission and hemoglobin is going up. Objective Last 24 Hour Vital Signs Date Time Temp Pulse Resp B/P (MAP) Pulse Ox O2 Delivery O2 Flow Rate FiO2 09/23/19 08:15 Room Air 09/23/19 08:07 91 20 99 Room Air 21 09/23/19 08:00 99.1 75 18 138/89 (105) 98 09/23/19 04:00 98.0 64 19 145/77 (99) 95 09/23/19 00:00 98.0 72 19 143/66 (91) 96 09/22/19 21:00 Room Air 09/22/19 20:00 98.9 87 19 148/91 (110) 96 09/22/19 16:00 98.4 84 20 147/92 (110) 95 09/22/19 14:39 Room Air 09/22/19 12:00 98.4 103 20 134/75 (94) 95 Intake and Output 09/22/19 09/23/19 19:00 07:00 Intake Total 450 ml 55 ml Balance 450 ml 55 ml Intake Oral 450 ml IV Total 55 ml # Voids 3 3 Laboratory Tests 09/23/19 06:45: White Blood Count 3.7L, Red Blood Count 3.90L, Hemoglobin 9.5L, Hematocrit 30.6L , Mean Corpuscular Volume 78L, Mean Corpuscular Hemoglobin 24.4L, Mean Corpuscular Hemoglobin Concent 31.1L, Red Cell Distribution Width 20.7H, Platelet Count 241#, Mean Platelet Volume 6.4L, Neutrophils (%) (Auto) , Lymphocytes (%) (Auto) , Monocytes (%) (Auto) , Eosinophils (%) (Auto) , Basophils (%) (Auto) , Neutrophils % (Manual) [Pending], Lymphocytes % (Manual) [Pending], Platelet Estimate [Pending], Platelet Morphology [Pending], Vitamin B12 Level 331, Folate 37.6 Height (Feet): 5 Height (Inches): 6.00 Weight (Pounds): 159 General Appearance: no apparent distress EENT: PERRL/EOMI Neck: supple Cardiovascular: normal rate, regular rhythm, no gallop/murmur, no JVD Respiratory/Chest: lungs clear, normal breath sounds, no respiratory distress, no accessory muscle use Abdomen: non tender, soft, no organomegaly Extremities: non-tender Neurologic: alert - oriented x2, responsive Skin: normal pigmentation, warm/dry Wilber Holt M.D. Sep 23, 2019 10:35
--- NOTE | 2019-09-23 11:45 | NUR ---
NURSE NOTES: patient able to follow commands and make things known. bilateral soft wrist restraints removed. patient is calm and quiet. kept bed in the lowest position.siderails are upx3. call light is within reach. will cont to monitor.
[2019-09-23 12:00] VITALS: BP 140/86
[2019-09-23 16:00] VITALS: BP 130/85
--- NOTE | 2019-09-23 19:08 | NUR ---
HAND-OFF: Report given to Mariam.
--- NOTE | 2019-09-23 19:12 | NUR ---
NURSE NOTES: Received report from JUAN ALBERTO Arita. Patient in bed resting comfortably. Kiswahili speaking. On room air, no signs of distress or labored breathing. IV intact, patent, and saline locked. Bed in lowest position with call light in reach. Side rails up x2. Will continue with plan of care.
[2019-09-23 20:00] VITALS: BP 153/96
[2019-09-24] VITALS: BP 134/93
[2019-09-24 04:00] VITALS: BP 142/96
--- NOTE | 2019-09-24 07:43 | NUR ---
HAND-OFF: Report given to DAVON Yanez.
--- NOTE | 2019-09-24 07:44 | NUR ---
NURSE NOTES: Patient is asleep. No s/s of distress. Side rails are up x3, side rails are padded, bed is locked and in lowest position. Will continue to monitor.
[2019-09-24 08:00] VITALS: BP 126/88
[2019-09-24] MEDS: Docusate 100mg cap ORAL SCH (08:04)
[2019-09-24 12:00] VITALS: BP 130/95
--- NOTE | 2019-09-24 14:35 | NUR ---
CASE MANAGEMENT:REVIEW 09/22/19 SI;ALCOHOL INTOXICATION. ANEMIA. 98.3 103 20 160/100 95% RA H/H 8.6/27.7 AST 95 IS;DUONEB HHN IRON SUCROSE IV QHS MED SURG STATUS CASE MANAGEMENT:REVIEW 09/23/19 SI;ALCOHOL INTOXICATION. ANEMIA. 99.1 91 20 153/96 95% RA WBC 3.7 H/H 9.5/30.6 IS;DUONEB HHN IRON SUCROSE IV QHS MED SURG STATUS
--- NOTE | 2019-09-24 15:01 | NUR ---
NURSE NOTES: Patient is alert and oriented to name, place, and date. Patient reports that he is not homeless. Patient reports that he lives with uncle Dhiraj Aranda [phone] at address [address] [place] [address].
[2019-09-24] MEDS ORDERED: MULTIVITAMINS1 EAC2 ORAL (15:25)
[2019-09-24] MEDS ORDERED: FOLIC ACID1 MG ORAL (15:25)
--- NOTE | 2019-09-24 15:28 | Discharge Summary ---
Discharge Summary Hospital Course Date of Admission Sep 22, 2019 at 13:19 Date of Discharge 09/24/2019 Admitting Diagnosis ANEMIA, HEMATURIA HPI Andres Villalobos is a 44 year old male who was admitted on Sep 22, 2019 at 13:19 for Anemia,Hematuria Hospital Course 44 year old male with etoh abuse, and hematuria. Hemoglobin stable. no more episodes of hematuria. Received 3 doses of iv iron. Iron studies showed iron deficiency anemia. Admit to med surg transfuse prn keep hgb> 7 renal US, unremarkable Abdominal US etoh withdrawal protocol, add Librium CM consult for DC planning patient seen and exmained, walking independently. Tremors much improved and nearly gone. he is alert and orientated x3 and wants to go home. Discharge Medications New Medications: Folic Acid* (Folic Acid*) 1 Mg Tablet 1 MG ORAL DAILY for 7 Days, #7 TAB Multivitamins* (Multivitamins*) 1 Each Tablet 1 TAB ORAL DAILY for 7 Days, #7 TAB Discharge Condition Upon Discharge: stable Discharge Disposition Patient was discharged to home Discharge Diagnoses: (1) Acute alcoholic intoxication (2) Hematuria (3) Iron deficiency anemia (4) Microcytic anemia Wilber Holt M.D. Sep 24, 2019 15:28
--- NOTE | 2019-09-24 15:55 | NUR ---
DISCHARGE CALL MADE TO PATIENTS UNCLE ISHAAN ANDREWS AT CONFIRMED PATIENT RESIDES WITH HIM AT: [address] [place] [address] REQUESTS FOR PATIENT TO RETURN HOME VIA TAXI DUE TO DIFFICULTY COMMUTING TO [facility] INFORMED AND MADE AWARE. RN WILL COORDINATE TRANSPORTATION FOR PATIENT
[2019-09-24 16:00] VITALS: BP 121/89
--- NOTE | 2019-09-24 19:18 | NUR ---
NURSE NOTES: Patient discharged to home in stable condition via store clerk checker cab with belongings and front wheel walker.
--- NOTE | 2019-09-24 19:36 | NUR ---
NURSE NOTES: Patient discharged home via taxi. Taxi voucher given. Patient discharged to address on face sheet. Patient is stable. Discharge instructions given to patient. IV removed.
== END 2019-09-24 19:30 | disposition home or self-care (01) | DRG 775 ==
LOC: EDBD 13:47 → EMR 14:15 → 3E 16:08 → INTOOBSV 16:08 → EDBEDREQ 17:43 → 3E 09-22 00:26 → OBSVTOIN 09-22 13:19 → 4E 09-22 15:45
PROC: 30233N1 Transfusion of Nonautologous Red Blood Cells into Peripheral Vein, Percutaneous Approach (ICD-10-PCS; principal; 2019-09-20)
DX: F10.129 Alcohol abuse with intoxication, unspecified (principal); D50.9 Iron deficiency anemia, unspecified; R31.9 Hematuria, unspecified; Z59.0 Homelessness
CPT/HCPCS: 36415; 36430; 71045; 76770; 80048; 80053; 80307; 81003; 82607; 82746; 83540; 83550; 83690; 83735; 84443; 84484; 85007; 85025; 85610; 85730; 86850; 86900; 86901; 86920; 87081; 93005; 94664; 96360; 96361; 96365; 96374; 96375; 99285; C8957; G0480; J2405; J7030